=== PATIENT | female | born 1990 | race African-American/Black ===

== ENCOUNTER 2017-04-03 11:04 | Emergency (ER) | payer OTHER ==
--- NOTE | ~2017-04-03 | CR63 ---
[facility] A Service of [facility] & [facility] RADIOLOGY TEXT RESULTS PATIENT: ELENA KRUSE LOCATION: [facility] : [birth year] UNIT #: [id number] AGE: [address]: Rohini Bunn APRN SEX: F ORDER DR: [id number] [facility] [address] [place], [place] [address] [id number] E MR#: [id number] Acc #: [id number] NAME: ELENA KRUSE : 1990 SEX: F STUDY DATE/TIME: 04/03/2017 12:43 UNIT: [facility] ROOM: STUDY DESCRIPTION: CR Chest 2 View Attending Physician: Rohini Bunn A.P.R.N. Ordering Physician: Ed Rafael Salguero M.D. Primary Care Physician: [facility] MEDICAL IMAGING REPORT This report is preliminary unless electronic signature is present EXAM Two-view chest 04/03/2017 INDICATIONS 26-year-old female with cough, sneezing and headache symptoms for 3 months. TECHNIQUE Two-view chest COMPARISON 09/15/2014 FINDINGS Cardiac silhouette is unremarkable. Vascularity is normal. Lungs are clear. No effusion. Calcified granulomas present. IMPRESSION Calcified granulomatous changes otherwise negative chest. No change. Dictated by... Tyrone Jackson M.D. THIS IS AN ELECTRONICALLY VERIFIED REPORT Tyrone Jackson M.D. at 04/04/2017 7:12 AM WU/debra TD: 04/03/2017 17:31 JOB #: [id number] MEDICAL IMAGING REPORT Page 1 of 1 COPY
[~2017-04-03 11:04] MED LIST: PRENATAL1 TA1 PO
[2017-04-03 12:39] LABS: INFLUENZA A NEG (NEG); INFLUENZA B NEG (NEG)
== END 2017-04-03 13:55 | disposition home or self-care (01) ==
LOC: CED 11:04 → CFTX 11:04
PROVIDERS: Nurse Practitioner
DX: J01.90 Acute sinusitis, unspecified (principal); H66.91 Otitis media, unspecified, right ear
CPT/HCPCS: 71020; 87651; 87804; 99283